=== PATIENT | female | born 1955 | race Caucasian/White ===

== ENCOUNTER 2016-11-04 07:07 | Day surgery (SDC) | payer BC ==
[~2016-11-04] VITALS: Ht 162.6 cm; Wt 117.2 kg
[2016-11-04] VITALS (10 sets, daily range): BP systolic 11–138; BP diastolic 57–90; PULSE 65–82; TEMP 98–98.7
[~2016-11-04 07:07] MED LIST: NO HOME MEDICATIONS; PERCOCET 325 MG1 TA2 PO
[2016-11-04] MEDS ORDERED: PERCOCET 325 MG1 TA2 PO (07:16)
[2016-11-04] MEDS ORDERED: MOTRIN 800800 MG/TAB PO (07:16)
== END 2016-11-04 20:00 | disposition home or self-care (01) ==
LOC: SDCO 07:07 → SURG 13:10 → SDCO 20:00
DX: N95.0 Postmenopausal bleeding (principal); D25.9 Leiomyoma of uterus, unspecified
CPT/HCPCS: OP; A4315; J0690; J1100; J1885; J2405; J2704; J3010; J7120; Q9968

== ENCOUNTER → 2020-03-27 | Outpatient (CLI) | payer MEDICARE, BC ==
[~2020-03-27] MED LIST changes: +MOTRIN 800800 MG/TAB PO
== END ==
LOC: MC.RAD 08:14
DX: Z12.31 Encounter for screening mammogram for malignant neoplasm of breast (principal)

== ENCOUNTER → 2021-08-20 | Outpatient (CLI) | payer MEDICARE, BC | LOC: MC.RAD 08:03 | DX: Z12.31 Encounter for screening mammogram for malignant neoplasm of breast (principal) ==